=== PATIENT | female | born 1975 | race Two or more races ===

== ENCOUNTER 2024-12-10 06:20 | Inpatient (IN) | payer OTHER ==
[2024-12-07 14:22] VITALS: BP 139/86
[~2024-12-10] VITALS: Ht 157.5 cm; Wt 86.2 kg
[2024-12-10] MEDS ORDERED: CLINDAMYCIN PHOSPHATE 150 MG/ML (900mg) ONE (10:24)
[2024-12-10] MEDS ORDERED: POVIDONE-IODINE 118 ML BOTT TOP ONE (10:44)
[2024-12-10] MEDS ORDERED: POVIDONE-IODINE SCRUB 118 ML BOTT TOP ONE (10:44)
[2024-12-10] MEDS ORDERED: MORPHINE SULFATE 4 MG/ML VIAL IV ONE ×2 (17:30→18:15)
[2024-12-10] MEDS ORDERED: CEFAZOLIN SODIUM 1,000 MG VIAL IV SCH (22:03)
[2024-12-10] MEDS ORDERED: MORPHINE SULFATE 4 MG/ML VIAL IV PRN (22:15)
[2024-12-10] MEDS ORDERED: 0.9 % SODIUM CHLORIDE 1,000 ML IV SCH (22:15)
[2024-12-10] MEDS ORDERED: ONDANSETRON HCL 2 MG/ML VIAL IV PRN (22:15)
[2024-12-11 07:30] VITALS: BP 115/71; O2SAT 96
[2024-12-11] MEDS ORDERED: FAMOTIDINE/PF 20 MG/10 ML SYRINGE IV PUSH SCH (09:00)
[2024-12-11] MEDS ORDERED: MORPHINE SULFATE 4 MG/ML CARTRIDGE IV PRN (11:15)
[2024-12-11] MEDS ORDERED: FAMOTIDINE/PF 20 MG/2 ML VIAL IV PUSH SCH (21:00)
== END 2024-12-11 13:20 | disposition home or self-care (01) | DRG 580 ==
LOC: CIR.AMB 06:20 → SURG 17:57
PROVIDERS: Plastic Surgery; ADMIT Surgery; ATTEND Surgery
PROC: 07D63ZX Extraction of Left Axillary Lymphatic, Percutaneous Approach, Diagnostic (ICD-10-PCS; 2024-12-10)
PROC: BH41ZZZ Ultrasonography of Left Breast (ICD-10-PCS; 2024-12-10)
PROC: 07B60ZZ Excision of Left Axillary Lymphatic, Open Approach (ICD-10-PCS; principal; 2024-12-10 07:00)
PROC: 0HTU0ZZ Resection of Left Breast, Open Approach (ICD-10-PCS; 2024-12-10 07:00)
DX: D05.12 Intraductal carcinoma in situ of left breast (principal); C77.3 Secondary and unspecified malignant neoplasm of axilla and upper limb lymph nodes

== ENCOUNTER 2025-06-06 10:05 | Inpatient (IN) | payer OTHER ==
[~2025-06-06] VITALS: Ht 157.5 cm; Wt 86.2 kg
--- NOTE | 2025-06-06 11:00 | NUR ---
PACIENTE FEMINA, C/C DIFICULTAD RESPIRATORIA, SE REALIZA EKG, SE UBICA EN PASILLO
[2025-06-06] MEDS ORDERED: LEVALBUTEROL HCL 1.25 MG/3 ML SOLUTION IH SCH (11:12)
[2025-06-06] MEDS ORDERED: 0.9 % SODIUM CHLORIDE 1,000 ML IV ONE (11:15)
[2025-06-06] MEDS ORDERED: FAMOTIDINE/PF 20 MG/2 ML VIAL IV ONE (11:15)
[2025-06-06] MEDS ORDERED: METHYLPREDNISOLONE SOD SUCC 125 MG VIAL IV ONE (11:15)
[2025-06-06] MEDS ORDERED: LEVALBUTEROL HCL 0.63 MG/3 ML SOLUTION IH ONE (11:24)
[2025-06-06] MEDS ORDERED: PIPERACILLIN/TAZOBACTAM SODIUM 3.375 GM in DEXTROSE 5 % IN WATER 100 ML IV SCH (12:00)
[2025-06-06] MEDS ORDERED: PIPERACILLIN/TAZOBACTAM SODIUM 3.375 GM VIAL IV ONE (12:05)
[2025-06-06] MEDS ORDERED: METHYLPREDNISOLONE SOD SUCC 125 MG VIAL ONE (12:05)
[2025-06-06] MEDS ORDERED: FAMOTIDINE/PF 20 MG/2 ML VIAL ONE (12:06)
--- NOTE | 2025-06-06 12:56 | NUR ---
SE ORIENTA PTE SOBRE TRATAMIENTO MEDICO LA MISMA REFIERE ENTENDER. SE ADMINISTRAN MEDICAMENTOS PROSPER ORDEN MEDICA. SE COLECTAN MUESTRAS DE LABORATORIO BAJO MEDIDAS ASEPTICAS. SE ENTREGA ENVASE PARA PRUEBA DE ORINA. SE NOTIFICA A TERAPIA DENISE NO CONTESTAN.
[2025-06-06 13:03] LABS: BASO % 0.8 % (0.1-1.2); EOS # 0.15 (0.04-0.54); EOS % 2.5 % (0.7-7.0); LYMPH # 1.14 (1.18-3.74); LYMPH % 19.0 % (19.3-53.1); MEAN PLATELET VOLUME 9.00 fl (9.4-12.4); MONO # 0.58 (0.24-0.82); MONO % 9.7 % (4.7-12.5); NEUT # 4.06 (1.56-6.13); NEUT % 67.5 % (34.0-71.1); RED CELL DISTRIBUTION WIDTH 18.1 % (11.6-14.4)
[2025-06-06 13:09] LABS: ERYTHROCYTE SEDIMENTATION RATE 95 mm/hr (0-20)
[2025-06-06 13:32] LABS: D DIMER 1.9 MG/L
[2025-06-06 13:33] LABS: INR 1.09
[2025-06-06 13:56] LABS: ALT/SGPT 47.0 U/L (12-78); AST/SGOT 35.0 U/L (15-37); BILIRUBIN TOTAL 0.57 mg/dL (0.3-1.2); BUN CREA RATIO 28.0 (7.0-25.0); CREATININE SERUM 0.46 mg/dL (0.55-1.02); GFR 144.38; GLOBULINA 4.6 G/DL (2.4-3.5); GLUCOSE FASTING 96.0 mg/dL (65-100); OSMOLALITY SERUM 279.0 MOSM/KG (275-295)
[2025-06-06 14:05] LABS: URINE APPEARANCE Cloudy; URINE BILIRRUBIN Negative (NEGATIVE); URINE BLOOD Negative; URINE COLOR Dark Yellow; URINE GLUCOSE Negative (NEGATIVE); URINE KETONE Negative (NEGATIVE); URINE LEUKOCYTE Small; URINE NITRATE Negative; URINE PROTEIN Trace (NEGATIVE); URINE UROBILINOGEN 1.0 E.U./dl
[2025-06-06 14:06] LABS: URINE EPITHELIAL CELLS 78.1 uL (0.0-38.8); URINE RBC 20.9 uL (0.0-20.8); URINE WBC 181.0 uL (0.0-23.2)
[2025-06-06 14:29] LABS: TYPE CELLS SQUAMOUS; URINE CAST 1.13 uL (0.0-1.40)
[2025-06-06] MEDS ORDERED: TRAMADOL HCL 50 MG TABLET PO PRN (17:15)
[2025-06-06] MEDS ORDERED: FAMOTIDINE/PF 20 MG/2 ML VIAL IV SCH (21:00)
[2025-06-06 22:14] LABS: MONONUCLEAR 94.6 %; POLYMORPHONUCLEAR 5.4 %
[2025-06-06 22:44] LABS: GLU PLEURAL FLUID 243.0 mg/dl; LDH PLEURAL FLUID 874.0 U/L; TP PLEURAL FLUID 5.1 g/dl
[2025-06-07 01:05] VITALS: BP 130/82; O2SAT 96
[2025-06-07 08:39] VITALS: BP 127/79; O2SAT 96
[2025-06-07] MEDS ORDERED: CEFTRIAXONE SODIUM 2,000 MG in DEXTROSE 5 % IN WATER 100 ML IV SCH (09:00)
[2025-06-07] MEDS ORDERED: ENOXAPARIN SODIUM 40 MG/0.4 ML SYRINGE SUBCUTANEO SCH (09:00)
[2025-06-07 16:00] VITALS: BP 124/82; O2SAT 100
[2025-06-07] MEDS ORDERED: ENOXAPARIN SODIUM 40 MG/0.4 ML SYRINGE SUBCUTANEO NR (18:00)
[2025-06-07] MEDS ORDERED: TRAMADOL HCL 50 MG TABLET PO PRN (20:11)
[2025-06-08] VITALS: BP 103/71; O2SAT 100
[2025-06-08 10:33] VITALS: BP 123/87; O2SAT 100
[2025-06-08] MEDS ORDERED: ENOXAPARIN SODIUM 40 MG/0.4 ML SYRINGE SUBCUTANEO SCH (17:00)
[2025-06-12] MEDS ORDERED: BENZONATATE100 MG (21:04)
[2025-06-12] MEDS ORDERED: CAPECITABINE500 MG (21:04)
== END 2025-06-08 14:25 | disposition home or self-care (01) | DRG 188 ==
LOC: ER 10:06 → SURH 19:23
PROVIDERS: General Practice; Radiology Vascular & Interventional Radiology; ADMIT Internal Medicine; ATTEND Internal Medicine
PROC: 0W9B3ZZ Drainage of Left Pleural Cavity, Percutaneous Approach (ICD-10-PCS; principal; 2025-06-06)
PROC: BW24YZZ Computerized Tomography (CT Scan) of Chest and Abdomen using Other Contrast (ICD-10-PCS; 2025-06-06)
DX: J90 Pleural effusion, not elsewhere classified (principal); R06.02 Shortness of breath